=== PATIENT | male | born 1965 | race Caucasian/White ===

== ENCOUNTER 2021-08-17 09:48 | Inpatient (IN) | payer BC ==
[2021-08-17] VITALS (119 sets, daily range): BP systolic 121–161; BP diastolic 69–92; PULSE 93–122; TEMP 98.5–98.9; O2SAT 89–99
[~2021-08-17] VITALS: Ht 182.9 cm; Wt 113.8 kg
[2021-08-17 10:11] LABS: BASO % 0.4 % (0.0-2.0); EOS % 0.4 % (0.0-4.0); GRAN # 4.8 K/mm3 (1.4-6.5); GRAN % 83.2 % (42.2-75.2); HEMATOCRIT 43.7 % (42.0-52.0); HEMOGLOBIN 14.6 g/dl (13.5-18.0); LYMPH # 0.5 K/mm3 (1.2-3.4); LYMPH % 9.1 % (20.0-51.0); MEAN CELL VOLUME 85 fl (80.0-100.0); MEAN CORPUSCULAR HEMOGLOBIN 29 pg (27-31); MEAN CORPUSCULAR HGB CONC 33 g/dl (33.0-37.0); MEAN PLATELET VOLUME 8.9 fl (7.4-10.4); MONO # 0.4 K/mm3 (0.1-0.6); MONO % 6.7 % (1.7-9.3); PLATELET COUNT 259 K/mm3 (130-400); RED BLOOD COUNT 5.13 M/mm3 (4.20-5.60); REDCELL DISTRIBUTION WIDTH-CV 13.1 % (11.5-14.5)
[2021-08-17 10:29] LABS: ALANINE AMINOTRANSFERASE 31 U/L (0-55); ALBUMIN 4.2 gm/dL (3.5-5.0); ALKALINE PHOSPHATASE 80 U/L (40-150); ANION GAP 12 mmol/L (7-16); AST,SGOT 24 U/L (5-34); BILIRUBIN,TOTAL 1.1 mg/dL (0.2-1.2); BLOOD UREA NITROGEN 26 mg/dL (8-26); CALCIUM 10.1 mg/dL (8.4-10.2); CARBON DIOXIDE 24 mmol/L (22-29); CHLORIDE 99 mmol/L (98-107); GLUCOSE 196 mg/dL (70-99); LIPASE 24 U/L (8-78); POTASSIUM 4.3 mmol/L (3.5-4.5); SODIUM 135 mmol/L (136-145); TOTAL PROTEIN 8.5 gm/dL (6.2-8.1)
[2021-08-17 10:36] LABS: TROPONIN-I < 0.010 ng/mL (0.00-0.033)
[2021-08-17 11:37] LABS: COLLECTION METHOD CLEAN CATCH
[2021-08-17 11:57] LABS: AMORPHOUS CRYSTAL Present (NOT PRESENT); MUCOUS Present (NOT PRESENT); PH 5 (5-8); SQUAMOUS EPITHELIAL None Seen /hpf (0-10); URINE APPEARANCE Hazy (CLEAR/HAZY); URINE BACTERIA None Seen /hpf (NONE SEEN); URINE BILIRUBIN Negative (NEGATIVE); URINE BLOOD 3+ (NEGATIVE); URINE COLOR Yellow (YELLOW); URINE GLUCOSE Negative (NEGATIVE); URINE KETONE 1+ (NEGATIVE); URINE LEUKOCYTE ESTERASE Negative (NEGATIVE); URINE NITRATE Negative (NEGATIVE); URINE PROTEIN(semi-quant) Negative (NEGATIVE)
[2021-08-17] MEDS ORDERED: ULTRAM 50MG TAB50 MG PO (13:10)
[2021-08-17] MEDS ORDERED: FLOMAX 0.40.4 MG/CAP PO (13:11)
[2021-08-17] MEDS ORDERED: PRALUENT P75 MG/1 ML SQ (13:12)
[2021-08-17] MEDS ORDERED: COZAAR 50MG50 MG/TAB PO (13:13)
[2021-08-17] MEDS ORDERED: TRIAMC 0.1 454 TOP (13:13)
[2021-08-17] MEDS ORDERED: GLUCOPHAGE850 MG/TAB PO (13:14)
[2021-08-17] MEDS ORDERED: ZYLOPRIM 300MG300 MG PO (13:14)
--- NOTE | 2021-08-17 13:27 | NUR ---
Vital signs repeated and Temp up to 102, HR 120, 166/84, 92%. Has been resting with eyes closed.
[2021-08-17] MEDS ORDERED: CBD OIL TOP (13:31)
--- NOTE | 2021-08-17 13:55 | NUR ---
Attempted to contact Dr. Sanchez. Will continue to call. Repeat vital signs 102/102, 117, 24, teomp 101.8. Patient placed on oxygen at 2L to keep sats above 90%.
--- NOTE | 2021-08-17 14:07 | NUR ---
Dr. Sanchez returns call and orders received. Surgery notified and mill house supervisor notified of need for ICU bed post op.
--- NOTE | 2021-08-17 14:29 | NUR ---
1000cc NS started per order of Dr. Sanchez and FABI Urias initiated.
--- NOTE | 2021-08-17 14:37 | NUR ---
Temp 102.2, 178/89, sats 93% on 2L per nasal cannula, HR 122, RR 22. Accucheck 197. Stands at bedside and voids 250cc's concentrated urine. Urine strained and no stone noted.
--- NOTE | 2021-08-17 14:43 | NUR ---
Consent signed for surgery.
--- NOTE | 2021-08-17 15:00 | NUR ---
Awaits surgery. VS 158/71, HR 126, Temp 102.1, sats 94% on 2L and RR 22.
--- NOTE | 2021-08-17 18:00 | NUR ---
Called RT to bring patient Incentive spirometer to bedside.
--- NOTE | 2021-08-17 19:30 | NUR ---
RECEIVED REPORT FROM MARYRN/COTY MONIQUE. PT RESTING IN BED. O2 OFF AT THIS TIME. VSS. DENIES ANY SHOB/ CP/PRESSURE AT THIS TIME. CALL LIGHT WITHIN REACH. FC PATENT AND DRAINING TO GRAVITY. CLEAR YELLOW URINE NOTED.
[2021-08-17] MEDS ORDERED: COLACE 100100 MG/CAP PO (19:36)
[2021-08-18] VITALS (117 sets, daily range): BP systolic 115–137; BP diastolic 66–82; PULSE 78–88; TEMP 97.6–98.8; O2SAT 90–99
[2021-08-18 05:31] LABS: BASO % 0.2 % (0.0-2.0); GRAN # 8.2 K/mm3 (1.4-6.5); GRAN % 81.3 % (42.2-75.2); LYMPH # 0.9 K/mm3 (1.2-3.4); LYMPH % 8.4 % (20.0-51.0); MEAN CELL VOLUME 89 fl (80.0-100.0); MEAN CORPUSCULAR HGB CONC 33 g/dl (33.0-37.0); MEAN PLATELET VOLUME 9.1 fl (7.4-10.4); MONO % 9.8 % (1.7-9.3); PLATELET COUNT 220 K/mm3 (130-400); RED BLOOD COUNT 3.87 M/mm3 (4.20-5.60); REDCELL DISTRIBUTION WIDTH-CV 13.6 % (11.5-14.5)
[2021-08-18 05:35] LABS: HEMATOCRIT 34.4 % (42.0-52.0); HEMOGLOBIN 11.2 g/dl (13.5-18.0); MEAN CORPUSCULAR HEMOGLOBIN 29 pg (27-31)
[2021-08-18 05:48] LABS: CREATININE, serum 1.57 mg/dL (0.72-1.25); POTASSIUM 4.6 mmol/L (3.5-4.5)
[2021-08-18] MEDS ORDERED: OMNICEF 300MG300 MG PO (11:31)
--- NOTE | 2021-08-18 14:06 | NUR ---
tailings worker met with patient to complete intake assessment for discharge planning. Patient states that he lives with his spouse and son and plans home upon discharge. Nurse states that patient will discharge home today. Patient states that his primary care provider is Dr Martins and that his insurance covers his medication costs. Patient states that he has been independent with his activities of daily living and denies unmet needs. Patient states he does not have advance directives and worker provided copies of living will and durable power of criminal attorney. Worker offered to assist with completion of advance directives.
--- NOTE | 2021-08-18 15:59 | NUR ---
DR. WOLFF CALLED TO GIVE UPDATE ON PATIENTS CONDITION. NO ANSWER. VOICEMAIL LEFT LETTING HIM KNOW THE PATIENT CONTINUES TO DO WELL, STABLE WITH NO CONCERNS.
--- NOTE | 2021-08-18 16:45 | NUR ---
DISCHARGE ORDERS RECEIVED FROM DR. WOLFF.
--- NOTE | 2021-08-18 17:32 | NUR ---
DISCHARGE PAPERWORK REVIEWED. FOLLOW UP APPT DISCUSSED. ANTIBIOTIC REVIEWED. PATIENT VERBALIZES UNDERSTANDING OF DISCHARGE PACKET AND EDUCATIONAL MATERIALS. PATIENT AMBULATES OUT WITH THIS RN TO EMERGENCY ENTRANCE. TAKES HIM HOME.
== END 2021-08-18 17:34 | disposition home or self-care (01) | DRG 854 ==
LOC: COL.ER 09:48 → SDCO 13:03 → ICU 16:15
PROVIDERS: Emergency Medicine; ADMIT Urology
PROC: 0T768DZ Dilation of Right Ureter with Intraluminal Device, Via Natural or Artificial Opening Endoscopic (ICD-10-PCS; principal; 2021-08-17 17:00)
PROC: 0TC68ZZ Extirpation of Matter from Right Ureter, Via Natural or Artificial Opening Endoscopic (ICD-10-PCS; 2021-08-17 17:00)
DX: A41.9 Sepsis, unspecified organism (principal); E87.2 Acidosis; N17.9 Acute kidney failure, unspecified; N20.1 Calculus of ureter; I10 Essential (primary) hypertension; E78.5 Hyperlipidemia, unspecified; E11.9 Type 2 diabetes mellitus without complications; N20.0 Calculus of kidney; Z23 Encounter for immunization
CPT/HCPCS: A4314; C1769; C2617; G0378; J0690; J1100; J2405; J2543; J2704; J2765; J3010; J7030; Q9967

== ENCOUNTER → 2021-09-27 | Outpatient (CLI) | payer BC ==
[~2021-09-27] MED LIST: CBD OIL TOP; COLACE 100100 MG/CAP PO; COZAAR 50MG50 MG/TAB PO; FLOMAX 0.40.4 MG/CAP PO; GLUCOPHAGE850 MG/TAB PO; OMNICEF 300MG300 MG PO; PRALUENT P75 MG/1 ML SQ; TRIAMC 0.1 454 TOP; ULTRAM 50MG TAB50 MG PO; ZYLOPRIM 300MG300 MG PO
== END ==
LOC: COL.RAD 09:23
DX: N28.1 Cyst of kidney, acquired (principal); Z96.0 Presence of urogenital implants